=== PATIENT | male | born 1990 | race Two or more races ===

== ENCOUNTER 2018-01-08 14:51 | Emergency (ER) | payer BC ==
[~2018-01-08] VITALS: Ht 185.4 cm; Wt 74.8 kg
--- OUTSIDE RECORDS SUMMARY | 2018-01-08 14:55 | XMS REPORT | Summary of Care ---
Author Author [facility] Organization [facility] Address Unknown Phone Unavailable Encounter MICHAEL Francis(NATALIE) [id number] Date(s): 05/06/17 - 05/08/17 [facility] [address] [employer] provided by [facility] [employer] [facility] [place] [id number]- Encounter Diagnosis Acute pancreatitis without necrosis or infection, unspecified (Final) - 05/13/17 Elevated white blood cell count, unspecified (Final) - Essential (primary) hypertension (Final) - Personal history of nicotine dependence (Final) - Allergy status to penicillin (Final) - Discharge Disposition: Home or Self Care Attending Physician: Agata Benitez MD Admitting Physician: Fernanda Saunders MD Referring Physician: Lobo Katz MD Vital Signs 1 2 3 Most recent to oldest [Reference Range]: 185.42 cm (05/06/17 12:51 PM) Height 100.1 DegF *HI* (05/08/17 3:38 PM) 98.7 DegF (05/08/17 2:01 PM) 100.1 DegF *HI* (05/08/17 11:34 AM) Temperature Oral [96.4-99.1 DegF] 138/97 mmHg (05/08/17 3:38 PM) 140/92 mmHg (05/08/17 2:01 PM) 155/104 mmHg *HI* (05/08/17 11:34 AM) Blood Pressure [90-140/60-90 mmHg] 18 BRMIN (05/08/17 3:38 PM) 19 BRMIN (05/08/17 2:01 PM) 16 BRMIN (05/08/17 11:34 AM) Respiratory Rate [14-20 BRMIN] 107 bpm *HI* (05/08/17 3:38 PM) 108 bpm *HI* (05/08/17 2:01 PM) 91 bpm (05/08/17 11:34 AM) Peripheral Pulse Rate [60-100 bpm] 74.2 kg (05/06/17 12:51 PM) Weight 21.58 m2 (05/06/17 12:51 PM) Body Mass Index Problem List No data available for this section Allergies, Adverse Reactions, Alerts Substance Reaction Severity Status penicillins Active aspirin Active pertussis, whole cell Active iodine Active Medications amLODIPine 5 mg, 1 tab, Route: PO, Drug form: TAB, Daily, Dosing Weight 74.2, kg, Start emiliano e: 05/08/17 9:26:00 CDT, Duration: 30 day, Stop date: 06/07/17 9:00:00 CDT Notes: (Same as: Norvasc) Start Date: 05/08/17 Stop Date: 05/08/17 Status: Discontinued amLODIPine 5 mg, Route: PO, Drug form: TAB, Daily, Dosing Weight 74.2, kg, Start date: 04/24 08/11 9:00:00 CDT, Duration: 30 day, Stop date: 06/07/17 9:00:00 CDT Start Date: 05/09/17 Stop Date: 05/08/17 Status: Canceled amLODIPine 5 mg oral tablet 5 mg=1 tab, PO, Daily, # 30 tab, 0 Refill(s), Pharmacy: [id number] Start Date: 05/08/17 Stop Date: 06/07/17 Status: Ordered docusate 100 mg, 1 cap, Route: PO, Drug form: CAP, BID, Dosing Weight 74.2, kg, Start emiliano e: 05/07/17 17:00:00 CDT, Duration: 30 day, Stop date: 06/06/17 9:00:00 CDT Notes: (Same as: Colace) (Do Not Crush) Start Date: 05/07/17 Stop Date: 05/08/17 Status: Discontinued hydrALAZINE 10 mg, 0.5 mL, Route: IV, Drug form: INJ, ONCE, Dosing Weight 74.2, kg, Start da te: 05/08/17 11:34:00 CDT, Stop date: 05/08/17 11:34:00 CDT Notes: (Same as: Apresoline)Push over 5 minutes Start Date: 05/08/17 Stop Date: 05/08/17 Status: Completed Lactated Ringers IV 1,000 mL 1,000 mL, Rate: 150 ml/hr, Infuse over: 6.7 hr, Route: IV, Dosing Weight 74.2 kg , Total Volume: 1,000, Start date: 05/06/17 14:06:00 CDT, Stop date: 06/05/17 14 :05:00 CDT, 1.96, m2 Start Date: 05/06/17 Stop Date: 05/08/17 Status: Discontinued Lovenox 40 mg, 0.4 mL, Route: SUB-Q, Drug form: INJ, [id number], Dosing Weight 74.2, kg, S tart date: 05/06/17 15:00:00 CDT, Duration: 30 day, Stop date: 06/04/17 15:00:00 CDT Notes: (Same as: Lovenox) Start Date: 05/06/17 Stop Date: 05/08/17 Status: Discontinued magnesium oxide 400 mg, 1 tab, Route: PO, Drug form: TAB, Q4H, Dosing Weight 74.2, kg, Start emiliano e: 05/08/17 8:00:00 CDT, Duration: 2 doses or times, Stop date: 05/08/17 12:00:0 0 CDT Notes: (Same as: Mag-Ox 400)Magnesium oxide [id number] elemental magnesiumDose= ____mg magnesium oxide (___mg elemental magnesium) Start Date: 05/08/17 Stop Date: 05/08/17 Status: Completed MiraLax 17 gm, 1 pkt, Route: PO, Drug form: PWDR, Daily, Dosing Weight 74.2, kg, Start d ate: 05/07/17 9:51:00 CDT, Duration: 30 day, Stop date: 06/06/17 9:00:00 CDT Notes: Dissolve in 8 oz of water or juice.(Same as: Miralax) Start Date: 05/07/17 Stop Date: 05/08/17 Status: Discontinued morphine Sulfate 2 mg, 0.5 mL, Route: IVP, Drug form: SOLN, Q4H, Dosing Weight 74.2, kg, PRN Pain Score 7-10, Start date: 05/07/17 15:38:00 CDT, Duration: 30 day, Stop date: 15:37:00 CDT Notes: (Same as:MORPhine Sulfate) Start Date: 05/07/17 Stop Date: 05/08/17 Status: Discontinued morphine Sulfate 4 mg, 1 mL, Route: IVP, Drug form: SOLN, Q4H, Dosing Weight 74.2, kg, PRN Pain S core 7-10, Start date: 05/07/17 6:05:00 CDT, Duration: 30 day, Stop date: 6:04:00 CDT Notes: (Same as:MORPhine Sulfate) Start Date: 05/07/17 Stop Date: 05/07/17 Status: Discontinued morphine Sulfate 2 mg, 0.5 mL, Route: IVP, Drug form: SOLN, Q4H, Dosing Weight 74.2, kg, PRN Pain Score 7-10, Start date: 05/06/17 13:50:00 CDT, Stop date: 06/05/17 13:49:00 CDT Notes: (Same as:MORPhine Sulfate) Start Date: 05/06/17 Stop Date: 05/07/17 Status: Discontinued morphine Sulfate 4 mg, 1 mL, Route: IVP, Drug form: SOLN, ONCE, Dosing Weight 74.2, kg, Priority: NOW, Start date: 05/06/17 13:59:00 CDT, Stop date: 05/06/17 13:59:00 CDT Notes: (Same as:MORPhine Sulfate) Start Date: 05/06/17 Stop Date: 05/06/17 Status: Completed NS (Bolus) IV 1,000 mL, 1000 ml/hr, Infuse Over: 1 hr, Route: IV, 1,000, Drug form: INJ, ONCE, Priority: NOW, Dosing Weight 74.2 kg, Start date: 05/06/17 13:58:00 CDT, Stop d ate: 05/06/17 13:58:00 CDT Start Date: 05/06/17 Stop Date: 05/06/17 Status: Completed ondansetron 4 mg, 2 mL, Route: IVP, Drug form: INJ, Q6H, Dosing Weight 74.2, kg, PRN Nausea & Vomiting, Start date: 05/06/17 13:50:00 CDT, Duration: 30 day, Stop date: 06/05/17 13:49:00 CDT Notes: (Same as: Alfredo) MEDICATION WASTE Product Size: 4 mgProduct Was liana: ___ mg Start Date: 05/06/17 Stop Date: 05/08/17 Status: Discontinued Tylenol with Codeine #3 oral tablet 1 tab, Route: PO, Drug Form: TAB, Dosing Weight 74.2, kg, Q6H, PRN Pain Score 6- 10, Start date: 05/08/17 9:47:00 CDT, Duration: 30 day, Stop date: 06/07/17 9:46 :00 CDT Notes: Do not exceed 4gm/day of acetaminophen. (Same as: Tylenol with Codeine # 3) Start Date: 05/08/17 Stop Date: 05/08/17 Status: Discontinued Tylenol with Codeine #3 oral tablet 1 tab, PO, Q6H, PRN Pain Score 6-10, X 3 day, # 12 tab, 0 Refill(s) Start Date: 05/08/17 Stop Date: 05/11/17 Status: Completed Results ELECTROLYTES 1 2 3 Most recent to oldest [Reference Range]: 138 mEq/L (05/08/17 12:35 AM) 140 mEq/L (05/07/17 4:52 AM) 140 mEq/L (05/06/17 2:36 PM) Sodium Lvl [135-145 mEq/L] 3.8 mEq/L (05/08/17 12:35 AM) 3.9 mEq/L (05/07/17 4:52 AM) 4.4 mEq/L (05/06/17 2:36 PM) Potassium Lvl [3.5-5.1 mEq/L] 99 mEq/L (05/08/17 12:35 AM) 100 mEq/L (05/07/17 4:52 AM) 102 mEq/L (05/06/17 2:36 PM) Chloride Lvl [95-109 mEq/L] 32 mEq/L (05/08/17 12:35 AM) 28 mEq/L (05/07/17 4:52 AM) 29 mEq/L (05/06/17 2:36 PM) CO2 [24-32 mEq/L] 10.8 mEq/L (05/08/17 12:35 AM) 15.9 mEq/L (05/07/17 4:52 AM) 13.4 mEq/L (05/06/17 2:36 PM) AGAP [10.0-20.0 mEq/L] CHEM PANEL 1 2 3 Most recent to oldest [Reference Range]: 0.88 mg/dL (05/08/17 12:35 AM) 1.07 mg/dL (05/07/17 4:52 AM) 1.05 mg/dL (05/06/17 2:36 PM) Creatinine Lvl [0.50-1.40 mg/dL] 117 mL/min/1.73m2 1 *NA* (05/08/17 12:35 AM) 94 mL/min/1.73m2 2 *NA* (05/07/17 4:52 AM) 96 mL/min/1.73m2 3 *NA* (05/06/17 2:36 PM) eGFR 5 mg/dL *LOW* (05/08/17 12:35 AM) 9 mg/dL (05/07/17 4:52 AM) 11 mg/dL (05/06/17 2:36 PM) BUN [7-22 mg/dL] 10 (05/06/17 2:36 PM) B/C Ratio [6-25] 61 mg/dL *LOW* (05/08/17 12:35 AM) 76 mg/dL (05/07/17 4:52 AM) 106 mg/dL *HI* (05/06/17 2:36 PM) Glucose Lvl [70-99 mg/dL] 7.0 g/dL (05/06/17 2:36 PM) Total Protein [6.4-8.4 g/dL] 4.1 g/dL (05/06/17 2:36 PM) Albumin Lvl [3.5-5.0 g/dL] 2.9 g/dL (05/06/17 2:36 PM) Globulin [2.7-4.2 g/dL] 1.4 (05/06/17 2:36 PM) A/G Ratio [0.7-1.6] 8.7 mg/dL (05/08/17 12:35 AM) 8.8 mg/dL (05/07/17 4:52 AM) 9.1 mg/dL (05/06/17 2:36 PM) Calcium Lvl [8.5-10.5 mg/dL] 2.5 mg/dL (05/08/17 12:35 AM) 3.4 mg/dL (05/07/17 4:52 AM) 3.2 mg/dL (05/06/17 2:36 PM) Phosphorus [2.5-4.5 mg/dL] 1.7 mg/dL *LOW* (05/08/17 12:35 AM) 2.0 mg/dL (05/07/17 4:52 AM) 2.1 mg/dL (05/06/17 2:36 PM) Magnesium Lvl [1.8-2.4 mg/dL] 19 unit/L (05/06/17 2:36 PM) ALT [0-65 unit/L] 23 unit/L (05/06/17 2:36 PM) AST [0-37 unit/L] 60 unit/L (05/06/17 2:36 PM) Alk Phos [39-136 unit/L] 1.3 mg/dL (05/06/17 2:36 PM) Bili Total [0.2-1.3 mg/dL] 182 unit/L *HI* (05/06/17 2:36 PM) Amylase Lvl [25-115 unit/L] 5274 unit/L *HI* (05/06/17 2:36 PM) Lipase Lvl [73-393 unit/L] 0.8 mMol/L (05/06/17 2:36 PM) Lactic Acid Lvl [0.5-2.2 mMol/L] 1Result Comment: The eGFR is calculated using the CKD-EPI formula. In most young, healthy individuals the eGFR will be >90 mL/min/1.73m2. The eGFR declines with age. An eGFR of 60-89 may be normal in some populations, particularly the elderly, for whom the CKD-EPI formula has not been extensively validated. Use of the eGFR is not recommended in the following populations: Individuals with unstable creatinine concentrations, including patients and those with serious co-morbid conditions. Patients with extremes in muscle mass or diet. The data above are obtained from the National Kidney Disease Education Program ( NKDEP) which additionally recommends that when the eGFR is used in patients with extremes of body mass index for purposes of drug dosing, the eGFR should be mul tiplied by the estimated BMI. 2Result Comment: The eGFR is calculated using the CKD-EPI formula. In most young, healthy individuals the eGFR will be >90 mL/min/1.73m2. The eGFR declines with age. An eGFR of 60-89 may be normal in some populations, particularly the elderly, for whom the CKD-EPI formula has not been extensively validated. Use of the eGFR is not recommended in the following populations: Individuals with unstable creatinine concentrations, including patients and those with serious co-morbid conditions. Patients with extremes in muscle mass or diet. The data above are obtained from the National Kidney Disease Education Program ( NKDEP) which additionally recommends that when the eGFR is used in patients with extremes of body mass index for purposes of drug dosing, the eGFR should be mul tiplied by the estimated BMI. 3Result Comment: The eGFR is calculated using the CKD-EPI formula. In most young, healthy individuals the eGFR will be >90 mL/min/1.73m2. The eGFR declines with age. An eGFR of 60-89 may be normal in some populations, particularly the elderly, for whom the CKD-EPI formula has not been extensively validated. Use of the eGFR is not recommended in the following populations: Individuals with unstable creatinine concentrations, including patients and those with serious co-morbid conditions. Patients with extremes in muscle mass or diet. The data above are obtained from the National Kidney Disease Education Program ( NKDEP) which additionally recommends that when the eGFR is used in patients with extremes of body mass index for purposes of drug dosing, the eGFR should be mul tiplied by the estimated BMI. LIPIDS 1 2 3 Most recent to oldest [Reference Range]: 102 mg/dL (05/06/17 2:36 PM) Chol [<=199 mg/dL] 110 mg/dL (05/06/17 2:36 PM) Trig [<=149 mg/dL] 59 mg/dL *LOW* (05/06/17 2:36 PM) HDL [>=61 mg/dL] 44 mg/dL (05/06/17 2:36 PM) LDL Direct [<=99 mg/dL] SPECIAL CHEMISTRY 1 2 3 Most recent to oldest [Reference Range]: 5.2 % (05/06/17 2:36 PM) Hgb A1C [<=5.6 %] PARATHYROID PROFILE 1 2 3 Most recent to oldest [Reference Range]: 1.08 mMol/L (05/08/17 12:35 AM) 1.05 mMol/L (05/07/17 4:52 AM) Ca Ion WB [1.05-1.25 mMol/L] 1.04 mMol/L *LOW* (05/08/17 12:35 AM) 0.99 mMol/L *LOW* (05/07/17 4:52 AM) Ca Norm WB [1.05-1.25 mMol/L] HEMATOLOGY 1 2 3 Most recent to oldest [Reference Range]: 16.4 K/CMM *HI* (05/08/17 12:35 AM) 15.5 K/CMM *HI* (05/07/17 4:52 AM) 14.3 K/CMM *HI* (05/06/17 2:36 PM) WBC [3.7-10.4 K/CMM] 4.20 M/CMM *LOW* (05/08/17 12:35 AM) 4.79 M/CMM (05/07/17 4:52 AM) 4.65 M/CMM *LOW* (05/06/17 2:36 PM) RBC [4.70-6.10 M/CMM] 13.7 g/dL *LOW* (05/08/17 12:35 AM) 15.5 g/dL (05/07/17 4:52 AM) 14.9 g/dL (05/06/17 2:36 PM) Hgb [14.0-18.0 g/dL] 39.9 % *LOW* (05/08/17 12:35 AM) 46.0 % (05/07/17 4:52 AM) 44.1 % (05/06/17 2:36 PM) Hct [42.0-54.0 %] 95.1 fL *HI* (05/08/17 12:35 AM) 96.1 fL *HI* (05/07/17 4:52 AM) 94.9 fL *HI* (05/06/17 2:36 PM) MCV [80.0-94.0 fL] 32.6 pg *HI* (05/08/17 12:35 AM) 32.4 pg *HI* (05/07/17 4:52 AM) 32.0 pg *HI* (05/06/17 2:36 PM) MCH [27.0-31.0 pg] 34.3 g/dL (05/08/17 12:35 AM) 33.7 g/dL (05/07/17 4:52 AM) 33.7 g/dL (05/06/17 2:36 PM) MCHC [32.0-36.0 g/dL] 13.4 % (05/08/17 12:35 AM) 13.4 % (05/07/17 4:52 AM) 13.6 % (05/06/17 2:36 PM) RDW [11.5-14.5 %] 8.8 fL (05/08/17 12:35 AM) 8.5 fL (05/07/17 4:52 AM) 8.5 fL (05/06/17 2:36 PM) MPV [7.4-10.4 fL] 173 K/CMM (05/08/17 12:35 AM) 216 K/CMM (05/07/17 4:52 AM) 227 K/CMM (05/06/17 2:36 PM) Platelet [133-450 K/CMM] 85.1 % *HI* (05/08/17 12:35 AM) 85.8 % *HI* (05/07/17 4:52 AM) 87.0 % *HI* (05/06/17 2:36 PM) Segs [45.0-75.0 %] 7.3 % *LOW* (05/08/17 12:35 AM) 6.1 % *LOW* (05/07/17 4:52 AM) 5.6 % *LOW* (05/06/17 2:36 PM) Lymphocytes [20.0-40.0 %] 7.1 % (05/08/17 12:35 AM) 7.9 % (05/07/17 4:52 AM) 7.2 % (05/06/17 2:36 PM) Monocytes [2.0-12.0 %] 0.1 % (05/08/17 12:35 AM) 0.1 % (05/07/17 4:52 AM) Eosinophils [0.0-4.0 %] 0.4 % (05/08/17 12:35 AM) 0.1 % (05/07/17 4:52 AM) 0.2 % (05/06/17 2:36 PM) Basophils [0.0-1.0 %] 14.0 K/CMM *HI* (05/08/17 12:35 AM) 13.3 K/CMM *HI* (05/07/17 4:52 AM) 12.4 K/CMM *HI* (05/06/17 2:36 PM) Segs-Bands # [1.5-8.1 K/CMM] 1.2 K/CMM (05/08/17 12:35 AM) 0.9 K/CMM *LOW* (05/07/17 4:52 AM) 0.8 K/CMM *LOW* (05/06/17 2:36 PM) Lymphocytes # [1.0-5.5 K/CMM] 1.2 K/CMM *HI* (05/08/17 12:35 AM) 1.2 K/CMM *HI* (05/07/17 4:52 AM) 1.0 K/CMM *HI* (05/06/17 2:36 PM) Monocytes # [0.0-0.8 K/CMM] 0.1 K/CMM (05/08/17 12:35 AM) Basophils # [0.0-0.2 K/CMM] 12.5 seconds (05/06/17 2:36 PM) PT [12.0-14.7 seconds] 0.93 (05/06/17 2:36 PM) INR [0.85-1.17] 26.3 seconds (05/06/17 2:36 PM) PTT [22.9-35.8 seconds] Immunizations No data available for this section Procedures No data available for this section Social History Social History Type Response Substance Abuse Use: None. IV drug use: No. Drug use interferes with work/home: No. Ready to change: No. Household substance abuse concerns: No. Cessation Education Provided: No. Alcohol Current, Type Beer. Frequency: 1-2 times per week. 2 Drinks/Episode average. Previous treatment: None. Drinks more than intended: No. Others hurt by drinking: No. Ready to change: No. Household alcohol concerns: No. Smoking Status Former smoker; Type: Cigarettes; Ready to change: No; Concerns about tobacco use in household: No; Exposure to Tobacco Smoke None; Cigarette Smoking Last 365 Days No; Reg Smoking Cessation Counseling No; Tobacco use per day: 2; Number of years: 5; entered on: 05/06/17 Assessment and Plan Extracted from: Title: Team C Progress Note Author: Alison Mason MD Date: 05/08/17 Mr. More is a 26 yo M with no PMH transferred from OSH for suspected acute pancreatitis. 1.Acute abdominal pain, likely related to acute pancreatitis - Obtained medical record from OSH, indicating acute pancreatitis - Lipase 5000+, amylase 182, lipid panel, A1C, lytes wnl, and leukocytosis - Repeat RUQ US showed no gallstone or cholycystitis - NPO, advance to clear liquid thenregular foodsif tolerates - Continue IVF with [id number] - Pain control with morphine IVPRN - PRN zofran - Will monitor fever, will blood culture and repeat imaging if T > 101.3 2.Hypertension - Most likely related to pain, however, patient was diagnosed with pre-hypertension in the past - Add amlopidine 5mg daily, will defer further management to primary care physician -Will monitor Prophylaxis Lovenox subq Disposition Pending po tolerance, likely DC home today Alison Mason MD, PGY-1 Physical Medicine & Rehabilitation Pager: [phone] Addendum by Magalie Attending Attestation: Dwight Cali MD on I personally interviewed and examined this patient with the resident team. I agree with 05/08/2017 the aforementioned history, exam, data findings, and assessment/plan with the following 11:19 CDT additions: Brief hospital course: 26 yo w/o pmh p/w epigastric pain, nausea and vomiting. admitted for pancreatitis s/t unknown etiology. labs & imaging reviewed Assessment/plan: HTN acute pancreatitis leukocytosis adat. D/C home today if tolerates po intake. start amlodipine. Extracted from: Title: History and Physical Author: Alison Mason MD Date: 05/06/17 Mr. More is a 26 yo M with no PMH transferred from OSH for suspected acute pancreatitis. 1.Acute abdominal pain, likely related to acute pancreatitis - Obtained medical record from OSH, indicating acute pancreatitis -Repeat labs: CBC, CMP, lipase, amylase, lipid panel, A1C, lytes - Repeat RUQ US to re-eval gallstone or other abnormalities - NPO - NS1LIV bolus, then MIVF with [id number] - Pain control with morphine IVPRN - PRN zofran Lovenox subq Pending clinical improvement Alison Mason MD, PGY-1 Physical Medicine & Rehabilitation Pager: [phone] TEACHING ATTENDING ATTESTATION STATEMENT: I have seen & examined this patient & discussed the findings on this patient in detail with the team on teaching rounds. I have reviewed the note above and I agree with the findings and plan of care outlined by Dr. Mason with the following additions/ exceptions acute abdominal pain due to acute pancreatitis. Reports epigastric pain after eating greasy foods. will need reeval w/RUQ to assess for gallstones. OSH US shows distended gallbladder. continue NPO, IVF and pain control.
--- OUTSIDE RECORDS SUMMARY | 2018-01-08 14:55 | XMS REPORT | Continuity of Care Document ---
Author Author [facility] Interface Address Unknown Phone Unavailable Problems Problem Status Onset Date Classification Date Reported Comments Source LEFT HAND LACERATION Active 11/05/2017 [facility] Acute pancreatitis without necrosis or infection, unspecified 05/14/2017 08/14/2017 [facility] PANCREATITIS Active 05/06/2017 [facility] SIDE OF HEAD PAIN Active 03/06/2017 [facility] Elevated white blood cell count, unspecified 08/14/2017 [facility] Essential hypertension 08/14/2017 [facility] Personal history of nicotine dependence 08/14/2017 [facility] Allergy status to penicillin 08/14/2017 [facility] Medications Medication Details Route Status Patient Instructions Ordering Provider Order Date Source Amlodipine 5 mg, Route: PO, Drug form: TAB, Daily, Dosing Weight 74.2, kg, Start date: 05/09/17 9:00:00 CDT, Duration: 30 day, Stop date: 06/07/17 9:00:00 CDT No Longer Active 05/09/2017 [facility] Acetaminophen 300 MG / Codeine Phosphate 30 MG Oral Tablet [Tylenol with Codeine #3] 1 tab, PO, Q6H, PRN Pain Score 6-10, X 3 day, # 12 tab, 0 Refill(s) No Longer Active 05/08/2017 [facility] amLODIPine 5 mg oral tablet 5 mg=1 tab, PO, Daily, # 30 tab, 0 Refill(s), Pharmacy: [facility] [id number] Active 05/08/2017 [facility] Hydralazine 10 mg, 0.5 mL, Route: IV, Drug form: INJ, ONCE, Dosing Weight 74.2, kg, Start date: 05/08/17 11:34:00 CDT, Stop date: 05/08/17 11:34:00 CDTNotes: (Same as: Apresoline) Push over 5 minutes Inactive 05/08/2017 [facility] Acetaminophen 300 MG / Codeine Phosphate 30 MG Oral Tablet [Tylenol with Codeine #3] 1 tab, Route: PO, Drug Form: TAB, Dosing Weight 74.2, kg, Q6H, PRN Pain Score 6-10, Start date: 05/08/17 9:47:00 CDT, Duration: 30 day, Stop date: 06/07/17 9:46:00 CDTNotes: Do not exceed 4gm/day of chinedu taminophen. (Same as: Tylenol with Codeine # 3) Inactive 05/08/2017 [facility] Amlodipine 5 mg, 1 tab, Route: PO, Drug form: TAB, Daily, Dosing Weight 74.2, kg, Start date: 05/08/17 9:26:00 CDT, Duration: 30 day, Stop date: 06/07/17 9:00:00 CDTNotes: (Same as: Norvasc) Inactive 05/08/2017 [facility] Magnesium Oxide 400 mg, 1 tab, Route: PO, Drug form: TAB, Q4H, Dosing Weight 74.2, kg, Start date: 05/08/17 8:00:00 CDT, Duration: 2 doses or times, Stop date: 05/08/17 12:00:00 CDTNotes: (Same as: Mag-Ox 400) Magnesium oxide [id number] elemental magnesium Dose=____mg magnesium oxide (___mg elemental magnesium) Inactive 05/08/2017 [facility] Docusate 100 mg, 1 cap, Route: PO, Drug form: CAP, BID, Dosing Weight 74.2, kg, Start date: 05/07/17 17:00:00 CDT, Duration: 30 day, Stop date: 06/06/17 9:00:00 CDTNotes: (Same as: Colace) (Do Not Crush) No Longer Active 05/07/2017 [facility] Morphine 2 mg, 0.5 mL, Route: IVP, Drug form: SOLN, Q4H, Dosing Weight 74.2, kg, PRN Pain Score 7-10, Start date: 05/07/17 15:38:00 CDT, Duration: 30 day, Stop date: 06/06/17 15:37:00 CDTNotes: (Same as:MORPhine Sulfate) No Longer Active 05/07/2017 [facility] Miralax 17 gm, 1 pkt, Route: PO, Drug form: PWDR, Daily, Dosing Weight 74.2, kg, Start date: 05/07/17 9:51:00 CDT, Duration: 30 day, Stop date: 06/06/17 9:00:00 CDTNotes: Dissolve in 8 oz of water or juice. (Same as: Miralax) No Longer Active 05/07/2017 [facility] Morphine 4 mg, 1 mL, Route: IVP, Drug form: SOLN, Q4H, Dosing Weight 74.2, kg, PRN Pain Score 7-10, Start date: 05/07/17 6:05:00 CDT, Duration: 30 day, Stop date: 06/06/17 6:04:00 CDTNotes: (Same as:MORPhine Sulfate) Inactive 05/07/2017 [facility] Lovenox 40 mg, 0.4 mL, Route: SUB-Q, Drug form: INJ, [id number], Dosing Weight 74.2, kg, Start date: 05/06/17 15:00:00 CDT, Duration: 30 day, Stop date: 06/04/17 15:00:00 CDTNotes: (Same as: Lovenox) No Longer Active 05/06/2017 [facility] Lactated Ringers IV 1,000 mL 1,000 mL, Rate: 150 ml/hr, Infuse over: 6.7 hr, Route: IV, Dosing Weight 74.2 kg, Total Volume: 1,000, Start date: 05/06/17 14:06:00 CDT, Stop date: 06/05/17 14:05:00 CDT, 1.96, m2 No Longer Active 05/06/2017 [facility] Morphine 4 mg, 1 mL, Route: IVP, Drug form: SOLN, ONCE, Dosing Weight 74.2, kg, Priority: NOW, Start date: 05/06/17 13:59:00 CDT, Stop date: 05/06/17 13:59:00 CDTNotes: (Same as:MORPhine Sulfate) Inactive 05/06/2017 [facility] NS (Bolus) IV 1,000 mL, 1000 ml/hr, Infuse Over: 1 hr, Route: IV, 1,000, Drug form: INJ, ONCE, Priority: NOW, Dosing Weight 74.2 kg, Start date: 05/06/17 13:58:00 CDT, Stop date: 05/06/17 13:58:00 CDT Inactive 05/06/2017 [facility] Ondansetron 4 mg, 2 mL, Route: IVP, Drug form: INJ, Q6H, Dosing Weight 74.2, kg, PRN Nausea & Vomiting, Start date: 05/06/17 13:50:00 CDT, Duration: 30 day, Stop date: 06/05/17 13:49:00 CDTNotes: (Same as: Zofran) MEDICATION WASTE Product Size: 4 mg Product Wasted: ___ mg No Longer Active 05/06/2017 [facility] Morphine 2 mg, 0.5 mL, Route: IVP, Drug form: SOLN, Q4H, Dosing Weight 74.2, kg, PRN Pain Score 7-10, Start date: 05/06/17 13:50:00 CDT, Stop date: 06/05/17 13:49:00 CDTNotes: (Same as:MORPhine Sulfate) No Longer Active 05/06/2017 [facility] Allergies, Adverse Reactions, Alerts Substance Category Reaction Severity Reaction type Status Date Reported Comments Source penicillins Assertion Drug allergy Active [facility] aspirin Assertion Drug allergy Active [facility] pertussis, whole cell Assertion Drug allergy Active [facility] iodine Assertion Drug allergy Active [facility] Immunizations Immunization Date Given Site Status Last Updated Comments Source Results Order Name Results Value Reference Range Date Interpretation Comments Source CHEM PANEL Magnesium Lvl 1.7 mg/dL 1.8 - 2.4 05/08/2017 [facility] CHEM PANEL Phosphorus 2.5 mg/dL 2.5 - 4.5 05/08/2017 [facility] CHEM PANEL eGFR 117 mL/min/1.73m2 05/08/2017 Result Comment: The eGFR is calculated using the [...] from the National Kidney Disease Education Program (NKDEP) which additionally recommends that when the eGFR is used in patients with extremes of body mass index for purposes of drug dosing, the eGFR should be multiplied by the estimated BMI. [facility] CHEM PANEL Chloride Lvl 99 meq/L 95 - 109 05/08/2017 [facility] CHEM PANEL Potassium Lvl 3.8 meq/L 3.5 - 5.1 05/08/2017 [facility] CHEM PANEL Sodium Lvl 138 meq/L 135 - 145 05/08/2017 [facility] CHEM PANEL CO2 32 meq/L 24 - 32 05/08/2017 [facility] CHEM PANEL Calcium Lvl 8.7 mg/dL 8.5 - 10.5 05/08/2017 [facility] CHEM PANEL Glucose Lvl 61 mg/dL 70 - 99 05/08/2017 [facility] CHEM PANEL BUN 5 mg/dL 7 - 22 05/08/2017 [facility] CHEM PANEL Creatinine Lvl 0.88 mg/dL 0.50 - 1.40 05/08/2017 [facility] CHEM PANEL AGAP 10.8 meq/L 10.0 - 20.0 05/08/2017 [facility] HEMATOLOGY MPV 8.8 fL 7.4 - 10.4 05/08/2017 [facility] HEMATOLOGY MCH 32.6 pg 27.0 - 31.0 05/08/2017 [facility] HEMATOLOGY MCV 95.1 fL 80.0 - 94.0 05/08/2017 [facility] HEMATOLOGY RDW 13.4 % 11.5 - 14.5 05/08/2017 [facility] HEMATOLOGY MCHC 34.3 g/dL 32.0 - 36.0 05/08/2017 [facility] HEMATOLOGY Platelet 173 K/CMM 133 - 450 05/08/2017 [facility] HEMATOLOGY Hgb 13.7 g/dL 14.0 - 18.0 05/08/2017 [facility] HEMATOLOGY Hct 39.9 % 42.0 - 54.0 05/08/2017 [facility] HEMATOLOGY WBC 16.4 K/CMM 3.7 - 10.4 05/08/2017 [facility] HEMATOLOGY RBC 4.20 M/CMM 4.70 - 6.10 05/08/2017 [facility] HEMATOLOGY Monocytes # 1.2 K/CMM 0.0 - 0.8 05/08/2017 [facility] HEMATOLOGY Basophils # 0.1 K/CMM 0.0 - 0.2 05/08/2017 [facility] HEMATOLOGY Monocytes 7.1 % 2.0 - 12.0 05/08/2017 [facility] HEMATOLOGY Eosinophils 0.1 % 0.0 - 4.0 05/08/2017 [facility] HEMATOLOGY Segs-Bands # 14.0 K/CMM 1.5 - 8.1 05/08/2017 [facility] HEMATOLOGY Basophils 0.4 % 0.0 - 1.0 05/08/2017 [facility] HEMATOLOGY Lymphocytes # 1.2 K/CMM 1.0 - 5.5 05/08/2017 [facility] HEMATOLOGY Segs 85.1 % 45.0 - 75.0 05/08/2017 [facility] HEMATOLOGY Lymphocytes 7.3 % 20.0 - 40.0 05/08/2017 [facility] PARATHYROID PROFILE Ca Norm WB 1.04 mMol/L 1.05 - 1.25 05/08/2017 [facility] PARATHYROID PROFILE Ca Ion WB 1.08 mMol/L 1.05 - 1.25 05/08/2017 [facility] CHEM PANEL Phosphorus 3.4 mg/dL 2.5 - 4.5 05/07/2017 [facility] CHEM PANEL Magnesium Lvl 2.0 mg/dL 1.8 - 2.4 05/07/2017 [facility] ELECTROLYTES AGAP 15.9 meq/L 10.0 - 20.0 05/07/2017 [facility] ELECTROLYTES eGFR 94 mL/min/1.73m2 05/07/2017 Result Comment: The eGFR is calculated using the [...] from the National Kidney Disease Education Program (NKDEP) which additionally recommends that when the eGFR is used in patients with extremes of body mass index for purposes of drug dosing, the eGFR should be multiplied by the estimated BMI. [facility] ELECTROLYTES Potassium Lvl 3.9 meq/L 3.5 - 5.1 05/07/2017 [facility] ELECTROLYTES Sodium Lvl 140 meq/L 135 - 145 05/07/2017 [facility] ELECTROLYTES CO2 28 meq/L 24 - 32 05/07/2017 [facility] ELECTROLYTES Chloride Lvl 100 meq/L 95 - 109 05/07/2017 [facility] ELECTROLYTES Calcium Lvl 8.8 mg/dL 8.5 - 10.5 05/07/2017 [facility] ELECTROLYTES BUN 9 mg/dL 7 - 22 05/07/2017 [facility] ELECTROLYTES Glucose Lvl 76 mg/dL 70 - 99 05/07/2017 [facility] ELECTROLYTES Creatinine Lvl 1.07 mg/dL 0.50 - 1.40 05/07/2017 [facility] HEMATOLOGY MCV 96.1 fL 80.0 - 94.0 05/07/2017 [facility] HEMATOLOGY Hct 46.0 % 42.0 - 54.0 05/07/2017 [facility] HEMATOLOGY WBC 15.5 K/CMM 3.7 - 10.4 05/07/2017 [facility] HEMATOLOGY RBC 4.79 M/CMM 4.70 - 6.10 05/07/2017 [facility] HEMATOLOGY Hgb 15.5 g/dL 14.0 - 18.0 05/07/2017 [facility] HEMATOLOGY RDW 13.4 % 11.5 - 14.5 05/07/2017 [facility] HEMATOLOGY Platelet 216 K/CMM 133 - 450 05/07/2017 [facility] HEMATOLOGY MCH 32.4 pg 27.0 - 31.0 05/07/2017 [facility] HEMATOLOGY MCHC 33.7 g/dL 32.0 - 36.0 05/07/2017 [facility] HEMATOLOGY MPV 8.5 fL 7.4 - 10.4 05/07/2017 [facility] HEMATOLOGY Lymphocytes # 0.9 K/CMM 1.0 - 5.5 05/07/2017 [facility] HEMATOLOGY Segs-Bands # 13.3 K/CMM 1.5 - 8.1 05/07/2017 [facility] HEMATOLOGY Monocytes # 1.2 K/CMM 0.0 - 0.8 05/07/2017 [facility] HEMATOLOGY Eosinophils 0.1 % 0.0 - 4.0 05/07/2017 [facility] HEMATOLOGY Basophils 0.1 % 0.0 - 1.0 05/07/2017 [facility] HEMATOLOGY Segs 85.8 % 45.0 - 75.0 05/07/2017 [facility] HEMATOLOGY Monocytes 7.9 % 2.0 - 12.0 05/07/2017 [facility] HEMATOLOGY Lymphocytes 6.1 % 20.0 - 40.0 05/07/2017 [facility] PARATHYROID PROFILE Ca Ion WB 1.05 mMol/L 1.05 - 1.25 05/07/2017 [facility] PARATHYROID PROFILE Ca Norm WB 0.99 mMol/L 1.05 - 1.25 05/07/2017 [facility] CHEM PANEL Lactic Acid Lvl 0.8 mMol/L 0.5 - 2.2 05/06/2017 [facility] CHEM PANEL Amylase Lvl 182 unit/L 25 - 115 05/06/2017 [facility] CHEM PANEL Lipase Lvl 5274 unit/L 73 - 393 05/06/2017 [facility] CHEM PANEL Phosphorus 3.2 mg/dL 2.5 - 4.5 05/06/2017 [facility] CHEM PANEL Magnesium Lvl 2.1 mg/dL 1.8 - 2.4 05/06/2017 [facility] CHEM PANEL eGFR 96 mL/min/1.73m2 05/06/2017 Result Comment: The eGFR is calculated using the [...] from the National Kidney Disease Education Program (NKDEP) which additionally recommends that when the eGFR is used in patients with extremes of body mass index for purposes of drug dosing, the eGFR should be multiplied by the estimated BMI. [facility] CHEM PANEL Bili Total 1.3 mg/dL 0.2 - 1.3 05/06/2017 [facility] CHEM PANEL Alk Phos 60 unit/L 39 - 136 05/06/2017 [facility] CHEM PANEL Total Protein 7.0 g/dL 6.4 - 8.4 05/06/2017 [facility] CHEM PANEL Calcium Lvl 9.1 mg/dL 8.5 - 10.5 05/06/2017 [facility] CHEM PANEL CO2 29 meq/L 24 - 32 05/06/2017 [facility] CHEM PANEL ALT 19 unit/L 0 - 65 05/06/2017 [facility] CHEM PANEL Albumin Lvl 4.1 g/dL 3.5 - 5.0 05/06/2017 [facility] CHEM PANEL AST 23 unit/L 0 - 37 05/06/2017 [facility] CHEM PANEL Chloride Lvl 102 meq/L 95 - 109 05/06/2017 [facility] CHEM PANEL Potassium Lvl 4.4 meq/L 3.5 - 5.1 05/06/2017 [facility] CHEM PANEL Sodium Lvl 140 meq/L 135 - 145 05/06/2017 [facility] CHEM PANEL Creatinine Lvl 1.05 mg/dL 0.50 - 1.40 05/06/2017 [facility] CHEM PANEL BUN 11 mg/dL 7 - 22 05/06/2017 [facility] CHEM PANEL Glucose Lvl 106 mg/dL 70 - 99 05/06/2017 [facility] CHEM PANEL AGAP 13.4 meq/L 10.0 - 20.0 05/06/2017 [facility] CHEM PANEL A/G Ratio 1.4 0.7 - 1.6 05/06/2017 [facility] CHEM PANEL Globulin 2.9 g/dL 2.7 - 4.2 05/06/2017 [facility] CHEM PANEL B/C Ratio 10 6 - 25 05/06/2017 [facility] HEMATOLOGY Monocytes 7.2 % 2.0 - 12.0 05/06/2017 [facility] HEMATOLOGY Basophils 0.2 % 0.0 - 1.0 05/06/2017 [facility] HEMATOLOGY Lymphocytes 5.6 % 20.0 - 40.0 05/06/2017 [facility] HEMATOLOGY Segs 87.0 % 45.0 - 75.0 05/06/2017 [facility] HEMATOLOGY Segs-Bands # 12.4 K/CMM 1.5 - 8.1 05/06/2017 [facility] HEMATOLOGY Lymphocytes # 0.8 K/CMM 1.0 - 5.5 05/06/2017 [facility] HEMATOLOGY Monocytes # 1.0 K/CMM 0.0 - 0.8 05/06/2017 [facility] HEMATOLOGY MCHC 33.7 g/dL 32.0 - 36.0 05/06/2017 [facility] HEMATOLOGY MPV 8.5 fL 7.4 - 10.4 05/06/2017 [facility] HEMATOLOGY RDW 13.6 % 11.5 - 14.5 05/06/2017 [facility] HEMATOLOGY Platelet 227 K/CMM 133 - 450 05/06/2017 [facility] HEMATOLOGY RBC 4.65 M/CMM 4.70 - 6.10 05/06/2017 [facility] HEMATOLOGY WBC 14.3 K/CMM 3.7 - 10.4 05/06/2017 [facility] HEMATOLOGY Hct 44.1 % 42.0 - 54.0 05/06/2017 [facility] HEMATOLOGY Hgb 14.9 g/dL 14.0 - 18.0 05/06/2017 [facility] HEMATOLOGY MCH 32.0 pg 27.0 - 31.0 05/06/2017 [facility] HEMATOLOGY MCV 94.9 fL 80.0 - 94.0 05/06/2017 [facility] HEMATOLOGY PT 12.5 s 12.0 - 14.7 05/06/2017 [facility] HEMATOLOGY PTT 26.3 s 22.9 - 35.8 05/06/2017 [facility] HEMATOLOGY INR 0.93 0.85 - 1.17 05/06/2017 [facility] LIPIDS Trig 110 mg/dL <=149 mg/dL 05/06/2017 [facility] LIPIDS LDL Direct 44 mg/dL <=99 mg/dL 05/06/2017 [facility] LIPIDS HDL 59 mg/dL >=61 mg/dL 05/06/2017 [facility] LIPIDS Chol 102 mg/dL <=199 mg/dL 05/06/2017 [facility] SPECIAL CHEMISTRY Hgb A1C 5.2 % <=5.6 % 05/06/2017 [facility] Gallbladder US Gallbladder US EXAM: US ABDOMEN LIMITED DATE: 05/06/2017 2:52 PM CDT INDICATION: OSH CT showed distended gallstone without stone or cholecystitis, please r/o gallstone or other abnormalities. ADDITIONAL INFORMATION: None. COMPARISON: None. TECHNIQUE: Multiplanar grayscale and color Doppler ultrasound of the right upper quadrant. FINDINGS: Liver: Craniocaudal length: 15.1 cm. Echogenicity: Coarse. Surface: Normal. Mass (size and location): None. Main portal vein: Caliber: 1.2 cm. Flow: Hepatopetal. Bile ducts: Common bile duct diameter: 0.3 cm. Intrahepatic ducts: Normal. Gallbladder: Gallstones: None. Gallbladder sludge: None. Gallbladder wall: 0.3 cm. Pericholecystic fluid: Minimal. Sonographic Frank sign: Absent. Multiple folds seen within the gallbladder. Pancreas: Not visualized due to bowel gas. Spleen: 8.5 x 2.9 x 2.9 cm Free fluid: None. Other: None. IMPRESSION: No cholelithiasis or sonographic evidence of acute cholecystitis. 05/06/2017 - - This report was dictated by a Physician Neonatology/Fellow. I have personally reviewed the images as well as the Resident's interpretation and agree with the findings. Read by: Cande Mooney MD Resident: Cande Mooney MD Dictated Date/time: 05/06/17 16:29 Electronically Signed by: Shayan Gutierrez MD 05/07/17 20:57 FINAL REPORT [facility] Chest 1view DX Chest 1view DX EXAM: XR CHEST 1 VIEW DATE: 05/06/2017 1:50 PM CDT INDICATION: - shortness of breath COMPARISON: 01/07/2005 TECHNIQUE: AP chest FINDINGS: Lines, tubes and hardware: None. Lungs and pleura: No pulmonary or pleural based abnormality is identified. Pulmonary vascularity is normal. Heart and mediastinum: The heart size is normal for technique. The mediastinal contours are normal. Bones: No acute bony abnormality is identified. IMPRESSION: 1. No acute cardiopulmonary abnormality. 05/06/2017 - - Read by: Matheus Lau MD Dictated Date/time: 05/06/17 15:28 Electronically Signed by: Matheus Lau MD 05/06/17 15:28 FINAL REPORT [facility] Vital Signs Vital Sign Value Date Comments Source Heart Rate 107 05/08/2017 [facility] Temperature Oral (F) 100.1 F 05/08/2017 [facility] Systolic (mm Hg) 138 05/08/2017 [facility] Diastolic (mm Hg) 97 05/08/2017 [facility] Respitory Rate 18 05/08/2017 [facility] Respitory Rate 19 05/08/2017 [facility] Systolic (mm Hg) 140 05/08/2017 [facility] Diastolic (mm Hg) 92 05/08/2017 [facility] Temperature Oral (F) 98.7 F 05/08/2017 [facility] Heart Rate 108 05/08/2017 [facility] Heart Rate 91 05/08/2017 [facility] Systolic (mm Hg) 155 05/08/2017 [facility] Diastolic (mm Hg) 104 05/08/2017 [facility] Temperature Oral (F) 100.1 F 05/08/2017 [facility] Respitory Rate 16 05/08/2017 [facility] BMI Calculated 21.58 05/06/2017 [facility] Weight 74.2 05/06/2017 [facility] Height 185.42 cm 05/06/2017 [facility] Encounters Location Location Details Encounter Type Encounter Number Reason For Visit Attending Provider ADM Date DC Date Status Source [facility] Inpatient [id number] Lobo [place] 05/06/2017 05/08/2017 [facility] Procedures Procedure Code Date Perfomer Comments Source
[2018-01-08] MEDS ORDERED: SODIUM CHLORIDE 0.9% 1000ML 1,000 ML IV STA (15:47)
[2018-01-08] MEDS ORDERED: FAMOTIDINE 20 MG/2 ML VIAL IV ONE (16:00)
[2018-01-08] MEDS ORDERED: ONDANSETRON HCL INJ 2 MG/ML VIAL IV PRN (16:00)
[2018-01-08] MEDS ORDERED: POTASSIUM CHLORIDE 20 MEQ TAB CR PO STA (16:26)
[2018-01-08 16:28] LABS: BASOPHILS % 0.4 % (0.0-1.0); EOSINOPHILS # (AUTO) 0.1 (0.0-0.4); EOSINOPHILS % 0.5 % (0.0-6.0); HEMATOCRIT 42.1 % (38.2-49.6); HEMOGLOBIN 14.3 g/dL (14.0-18.0); LYMPHOCYTES # (AUTO) 1.4 (1.0-3.2); LYMPHOCYTES % 15.5 % (18.0-39.1); MEAN CORPUSCULAR HEMOGLOBIN 31.6 pg (28-32); MEAN CORPUSCULAR VOLUME 92.9 fL (81-99); MONOCYTES # (AUTO) 0.8 (0.2-0.8); MONOCYTES % 8.9 % (4.4-11.3); NEUTROPHILS # (AUTO) 6.8 (2.1-6.9); NEUTROPHILS % 74.3 % (38.7-80.0); PLATELET COUNT 283 x10e3/uL (140-360); RED BLOOD COUNT 4.53 x10e6/uL (4.3-5.7); RED CELL DISTRIBUTION WIDTH 12.7 % (11.7-14.4)
--- NOTE | 2018-01-08 16:28 | Diagnostic Imaging Report ---
EXAMINATION: CHEST SINGLE (PORTABLE) INDICATION: Tightness in chest. Shortness of breath. Mercury exposure. COMPARISON: None FINDINGS: TUBES and LINES: None. LUNGS: Lungs are well inflated. Lungs are clear. There is no evidence of pneumonia or pulmonary edema. PLEURA: No pleural effusion or pneumothorax. HEART AND MEDIASTINUM: The cardiomediastinal silhouette is unremarkable. BONES AND SOFT TISSUES: No acute osseous lesion. Soft tissues are unremarkable. UPPER ABDOMEN: No free air under the diaphragm. IMPRESSION: No acute thoracic abnormality. Signed by: Dr. Jimmy Abreu M.D. on 01/08/2018 4:24 PM
[2018-01-08 16:43] LABS: ALANINE AMINOTRANSFERASE 14 IU/L (0-55); ALBUMIN 4.5 g/dL (3.5-5.0); ALBUMIN/GLOBULIN RATIO 1.7 (0.8-2.0); ALKALINE PHOSPHATASE 49 IU/L (40-150); ANION GAP 16.3 mmol/L (8-16); BLOOD UREA NITROGEN 11 mg/dL (7-26); BUN/CREATININE RATIO 12 (6-25); CALCIUM 9.2 mg/dL (8.4-10.2); CARBON DIOXIDE 29 mmol/L (22-29); CHLORIDE 94 mmol/L (98-107); CREATINE KINASE 263 IU/L (30-200); CREATININE, SERUM 0.93 mg/dL (0.72-1.25); EST GLOMERULAR FILTRATION RATE > 60 ML/MIN (60-); GLUCOSE 91 mg/dL (74-118); POTASSIUM 3.3 mmol/L (3.5-5.1); SODIUM 136 mmol/L (136-145)
[2018-01-08] MEDS ORDERED: ACETAMINOPHEN 325 MG TAB PO ONE (17:45)
[2018-01-08 19:01] VITALS: BP 129/100
== END 2018-01-08 19:03 | disposition home or self-care (01) ==
LOC: ER 14:51
DX: R07.89 Other chest pain (principal); R06.00 Dyspnea, unspecified; R11.0 Nausea; R05 Cough; R61 Generalized hyperhidrosis; R51 Headache; T56.1X1A Toxic effect of mercury and its compounds, accidental (unintentional), initial encounter; Y99.0 Civilian activity done for income or pay
CPT/HCPCS: 36415; 71045; 80053; 82550; 82553; 83880; 84484; 85025; 85379; 93005; 99284; J2405; J7030